=== PATIENT | male | born 1975 | race African-American/Black ===

== ENCOUNTER → 2021-12-20 | Outpatient (CLI) | payer BC ==
--- NOTE | 2021-12-20 08:43 | MR ---
EXAMINATION TYPE: MR brain wo/w con DATE OF EXAM: 12/20/2021 COMPARISON: None HISTORY: UNSPECIFIED CONVULSIONS TECHNIQUE: Multiplanar, multisequence images of the brain and brainstem is performed without and with IV contras t, utilizing 6 mL intravenous Gadavist . FINDINGS: Diffusion weighted images demonstrate no evidence of a recent infarct or other diffusion ab normality. There is no extra-axial fluid collection, focal hyperintensity is present in the right fr ontal white matter, axial image 17 series 501 and 41 measuring 6 mm. The ventricular system and cist ernal spaces are normal in size and appearance. The brain volume is age appropriate. Midline structures demonstrate normal morphology. The craniocervical junction appears within normal limits. Post contrast images demonstrate no abnormal enhancement. The dural venous sinuses appear pa tent. The visualized sinuses are showing mucosal disease in the ethmoid air cells and the globes are intact. IMPRESSION: Nonspecific focus of hyperintensity in the right frontal white matter of questionable cli nical significance. Mild sinus disease.
== END | disposition home or self-care (01) ==
LOC: RADMRIMAIN 07:26
PROVIDERS: ATTEND Family Medicine
DX: G93.89 Other specified disorders of brain (principal)
CPT/HCPCS: 70553; A9585

== ENCOUNTER → 2022-06-06 | Outpatient (CLI) | payer BC ==
[2022-06-06 18:29] LABS: Chol/HDL Ratio 4.89 Ratio; LDL Cholesterol,Calculated 160.1 mg/dL (0.0-131.0)
== END | disposition home or self-care (01) ==
LOC: LABWHC1 10:04
PROVIDERS: ATTEND Family Medicine
DX: Z00.00 Encounter for general adult medical examination without abnormal findings (principal)
CPT/HCPCS: 36415; 80061

== ENCOUNTER → 2023-02-17 | Outpatient (CLI) | payer BC ==
--- NOTE | 2023-02-18 15:37 | CA ---
Transthoracic Echo Report Name: Bobby Franz Age: 47 Gender: M : 1975 Exam Date: 02/17/2023 17:31 Exam Location: [facility] Ht (in): 66 Wt (lb): 143 Ordering Physician: Triston Gomez DO Attending/Referring Phys: Triston Gomez DO Skein Winder Cara Macedo RDCS Procedure CPT: Indications: R00.2 palpitations Cardiac Hx: Technical Quality: Good Contrast 1: Total Dose (mL): Contrast 2: Total Dose (mL): MEASUREMENTS (Male / Female) Normal Values 2D ECHO LV Diastolic Diameter PLAX 5.2 cm 4.2 - 5.9 / 3.9 - 5.3 cm LV Systolic Diameter PLAX 3.6 cm IVS Diastolic Thickness 1.0 cm 0.6 - 1.0 / 0.6 - 0.9 cm LVPW Diastolic Thickness 0.9 cm 0.6 - 1.0 / 0.6 - 0.9 cm LV Relative Wall Thickness 0.4 RV Internal Dim ED PLAX 2.9 cm LA Systolic Diameter LX 3.3 cm 3.0 - 4.0 / 2.7 - 3.8 cm LV Diastolic Volume MOD 4C 107.2 cm??? LV Systolic Volume MOD 4C 54.8 cm??? LV Ejection Fraction MOD 4C 48.8 % LV Cardiac Index MOD 4C 2433.2 cm???/min???m??? LV Diastolic Length 4C 9.2 cm LV Systolic Length 4C 7.3 cm LV Diastolic Volume MOD 2C 97.3 cm??? LV Systolic Volume MOD 2C 42.8 cm??? LV Ejection Fraction MOD 2C 56.0 % LV Cardiac Index MOD 2C 2531.7 cm???/min???m??? LV Diastolic Length 2C 9.0 cm LV Systolic Length 2C 7.3 cm LA Volume 54.8 cm??? 18 - 58 / 22 - 52 cm??? M-MODE Aortic Root Diameter MM 3.4 cm MV E Point Septal Separation 0.8 cm AV Cusp Separation MM 2.3 cm DOPPLER AV Peak Velocity 112.7 cm/s AV Peak Gradient 5.1 mmHg MV Area PHT 2.7 cm??? MR Peak Velocity 582.7 cm/s MR Peak Gradient 135.8 mmHg Mitral E Point Velocity 99.8 cm/s Mitral A Point Velocity 63.2 cm/s Mitral E to A Ratio 1.6 MV Deceleration Time 278.7 ms MV E' Velocity 8.9 cm/s Mitral E to MV E' Ratio 11.3 FINDINGS Left Ventricle Left ventricular ejection fraction is estimated at 50-55 %. Left ventricular cavity size normal. Left ventricular wall thickness normal. Right Ventricle Normal right ventricular size and function. Unable to estimate the right ventricular systolic pressure. Right Atrium Normal right atrial size. Left Atrium Normal left atrial size. Mitral Valve Mild prolapse of the anterior mitral valve leaflet. Mild prolapse of the posterior mitral valve leaflet. Mild- mitral regurgitation. Aortic Valve Trileaflet aortic valve. No aortic valve stenosis or regurgitation. Tricuspid Valve Structurally normal tricuspid valve. No tricuspid regurgitation. Pulmonic Valve Structurally normal pulmonic valve. Mild pulmonic regurgitation. Pericardium No pericardial effusion. Aorta Normal size aortic root and proximal ascending aorta. CONCLUSIONS Left ventricular ejection fraction 50-55% Mild mitral regurgitation Mild prolapse of the mitral valve anterior and posterior leaflets. No pericardial effusion Previewed by: Dr. Miquel Ann DO (Electronically Signed) Final Date: 18 February 2023 15:37
== END | disposition home or self-care (01) ==
LOC: RADECHMAIN 17:27
PROVIDERS: ATTEND Family Medicine
DX: I34.0 Nonrheumatic mitral (valve) insufficiency (principal); I37.1 Nonrheumatic pulmonary valve insufficiency; I34.1 Nonrheumatic mitral (valve) prolapse; R00.2 Palpitations
CPT/HCPCS: 93306

== ENCOUNTER 2023-03-26 09:42 | Day surgery (SDC) | payer BC ==
[~2023-03-26 09:42] MED LIST: LACTATED RINGERS 1,000 ML IV SCH
[2023-03-26] MEDS ORDERED: LIDOCAINE 1% (10MG/ML) FOR IV START INTRADERMA ONE (10:14)
[2023-03-26 10:22] VITALS: RESP 16; TEMP 97
[2023-03-26] MEDS ORDERED: PROPOFOL 10 MG/ML 20 ML VIAL IV ONE (10:28)
--- NOTE | 2023-03-26 10:45 | P.PCN ---
Date of Procedure: 03/26/23 Implants: BRIEF HISTORY: Patient is a 47-year-old pleasant white male scheduled for an elective colonoscopy as a part of screening for colon cancer. PROCEDURE PERFORMED: Colonoscopy with biopsy. PREOPERATIVE DIAGNOSIS: Screening for colon cancer. IV sedation per Anesthesia. PROCEDURE: After informed consent was obtained, the patient, was brought into the endoscopy unit. IV sedation was administered by Anesthesia under continuous monitoring. Digital rectal examination was normal. Initially the Olympus CF-160 flexible video colonoscope was then inserted in the rectum, gradually advanced into the cecum without any difficulty. Careful examination was performed as the scope was gradually being withdrawn. Ileocecal valve and the appendiceal orifice were visualized and appeared normal. Prep was excellent. Mucosa of the cecum, ascending colon, transverse colon, appeared normal. In the descending colon there was a 3 mm sessile polyp removed by cold biopsy. Rest of the descending colon, sigmoid colon, and rectum appeared normal. Rectum there were 2 polyps measuring 3 mm and 4 mm in size both of which were removed by cold biopsy. Retroflexion was performed in the rectum and no lesions were seen. The patient tolerated the procedure well. IMPRESSION: 3 mm descending colon polyp serous was cold biopsy 3 mm and 4 mm rectal polyp status post-cold biopsy RECOMMENDATIONS: Findings of this examination were discussed with the patient well as his family. He was advised to follow with the biopsy results. If the biopsy reveals adenoma, he can have a repeat colonoscopy in 5 years.
[2023-03-26 11:24] VITALS: BP 104/71; PULSE 71
== END 2023-03-26 11:18 | disposition home or self-care (01) ==
LOC: ORWHC2ENDO 09:42
PROVIDERS: ATTEND Internal Medicine Gastroenterology
DX: Z12.11 Encounter for screening for malignant neoplasm of colon (principal); K62.1 Rectal polyp; Z88.6 Allergy status to analgesic agent; G40.909 Epilepsy, unspecified, not intractable, without status epilepticus
CPT/HCPCS: 88305; 45380; J2704

== ENCOUNTER → 2023-07-18 | Outpatient (CLI) | payer BC ==
--- NOTE | 2023-08-19 12:31 | P.CEMON ---
30 DAY EVENT MONITOR REPORT: INDICATION: Palpitations R00.2, unspecified arrhythmia I49.9. START DATE: 07/18/2019 END DATE: 08/15/2023 Patient wore the monitor for 29 days which is 96% of total time. FINDINGS: Overall [good] quality study. Patient's baseline rhythm was [normal sinus rhythm]. Baseline heart rate was 80 bpm. There were no observed atrial fibrillation, atrial flutter or sustained ventricular rhythm. There were no observed sinus pauses which were more than 2 second long. There were occasional PVCs noticed during the study. Maximum tachycardic heart rate noticed during the event monitor study duration was 129 bpm Patient symptoms correlation: Patient reported symptoms of shortness of breath, chest pressure, dizziness and other nonspecified symptoms all corresponded to sinus tachycardia with average heart rate around 110 bpm. Conclusion Sinus tachycardia corresponding to patient's symptoms Otherwise no evidence of A-fib, SVT or ventricular arrhythmias Brad Salmeron MD, FACC, RPVI Thank you for allowing [facility] to participate in this patient's care. Feel free to reach out in case of any followup questions. Please CC this report to Dr. Triston Gomez
== END | disposition home or self-care (01) ==
LOC: RADECHMAIN 08:03
PROVIDERS: ATTEND Family Medicine
DX: R00.0 Tachycardia, unspecified (principal); I49.9 Cardiac arrhythmia, unspecified; R00.2 Palpitations
CPT/HCPCS: 93270

== ENCOUNTER → 2024-07-28 | Outpatient (CLI) | payer BC ==
--- NOTE | 2024-07-28 09:07 | XR ---
EXAMINATION TYPE: XR chest 2V DATE OF EXAM: 07/28/2024 8:59 AM COMPARISON: None. CLINICAL INDICATION: Male, 48 years old with history of R05.9 cough, TECHNIQUE: Frontal and lateral views of the chest are obtained. FINDINGS: There is no focal air space opacity, pleural effusion, or pneumothorax seen. There is appr oximately 1.0 cm dense nodule in the periphery of the right upper lobe The cardiac silhouette size is within normal limits. The osseous structures are intact. IMPRESSION: No acute pulmonary infiltrate. Suspect peripheral 1.0 cm right upper lobe nodule possibl y calcified, advise follow-up chest CT to further evaluate if old outside chest x-rays are not availa ble to document stability. [facility], , 07/28/2024 9:05 AM
== END | disposition home or self-care (01) ==
LOC: RADXRMAIN 08:46
PROVIDERS: ATTEND Family Medicine
DX: R05.9 Cough, unspecified (principal)
CPT/HCPCS: 71046